=== PATIENT | male | born 1995 | race Caucasian/White ===

== ENCOUNTER 2022-04-03 11:35 | Emergency (ER) | payer SELFPAY ==
[2022-04-03 11:37] VITALS: BP 144/80; PULSE 86; RESP 16; TEMP 36.2; O2SAT 97; BMI 32.6
--- NOTE | 2022-04-03 11:38 | NURSING ---
NO OLD EKGS
--- NOTE | 2022-04-03 11:41 | EKG12_ITS ---
Test Reason : cp Blood Pressure : / mmHG Vent. Rate : 069 BPM Atrial Rate : 069 BPM P-R Int : 154 ms QRS Dur : 090 ms QT Int : 400 ms P-R-T Axes : 050 -01 003 degrees QTc Int : 428 ms Normal sinus rhythm Low voltage QRS (LIMB LEADS) Confirmed by BENITEZ STOKES, GRACE ([id number]), senior technical editor ADAM SAAB ([id number]) on 04/04/2022 10:27:34 AM Referred By: Shin Confirmed By:GRACE MARQUIS MD
--- NOTE | 2022-04-03 11:42 | EDS_ITS ---
HPI History of Present Illness Chief Complaint: Chest Pain Informant: patient Narrative Narrative: 27-year-old male presenting with chest pain. Patient states he was at work and started having midsternal chest pain. He has mild associated shortness of breath. He felt like he was having a panic attack which he has had in the past. He has also had chest pain with previous panic attacks. No recent trauma. Denies PE/DVT risk factors. Family history of heart disease. Prior similar symptoms: Yes Recent Illness/Hospitalization: No PFSH PFSH Home Medications NK 04/03/22 [History Last Taken Unknown] Allergy/AdvReac Type Severity Reaction Status Date / Time No Known Allergies Allergy Verified 04/03/22 11:37 Social History Smoking Status: Current every day smoker tobacco type: cigarettes, e-cigarettes and smokeless tobacco EXAM Physical Exam Const Vital Signs: 04/03/22 11:37 04/03/22 11:41 04/03/22 12:21 Temperature 97.1 F L Temperature Source Oral Pulse Rate 86 67 Respiratory Rate 16 20 H Respiratory Effort Normal Non-Labored Blood Pressure 144/80 H 115/70 Blood Pressure Mean 101 85 Pulse Ox 97 96 Oxygen Delivery Method Room Air Room Air 04/03/22 13:25 04/03/22 14:00 Temperature Temperature Source Pulse Rate 67 58 L Respiratory Rate 18 21 H Respiratory Effort Blood Pressure 115/67 Blood Pressure Mean 83 Pulse Ox 98 97 Oxygen Delivery Method Room Air Room Air Positive well nourished and well developed General Appearance ED: well developed HEENT Reports normocephalic and head/scalp atraumatic Eyes PERRL and EOMs intact bilaterally Neck supple General: Negative for tenderness Chest Wall inspection of chest normal Resp normal respiratory effort and clear to auscultation bilaterally Cardio regular rate and regular rhythm GI non-tender and non-distended Palpation: soft; Negative for guarding or rebound tenderness present no CVA tenderness Extremity normal to inspection Neuro oriented x3 Sensorium / Orientation: alert Psych mental status grossly normal MDM MDM MDM Narrative Medical decision making narrative: Patient was given aspirin on arrival. He was given IV fluids. CBC, chemistries are unremarkable. Troponin is negative. D-dimer normal. 2 hour delta troponin negative, time recorded in error, but was drawn 2 hours after initial troponin. EKG is sinus rhythm rate of 69 with no acute ischemic changes. Chest x-ray read by myself and radiology shows no acute process. He was given Toradol IV. He is resting comfortably on reevaluation. He is given Dr. Ray coal or ore controller for no doctor for follow-up. Advised to return to the ED for worsening complaints. Lab Data Attestation: I reviewed the patient's lab results. Labs: Laboratory Results - last 24 hr 04/03/22 04/03/22 04/03/22 12:10 12:10 12:10 WBC 5.6 RBC 4.07 L Hgb 13.8 Hct 38.3 L MCV 94.1 H MCH 33.9 H MCHC 36.0 RDW Std Deviation 43.0 RDW Coeff of Yves 12.5 Plt Count 215 MPV 9.6 Immature Gran % (Auto) 0.200 Neut % (Auto) 71.0 H Lymph % (Auto) 17.9 L [place] % (Auto) 8.4 Eos % (Auto) 2.1 Baso % (Auto) 0.4 Absolute Neuts (auto) 4.0 Absolute Lymphs (auto) 1.00 Nucleated RBC % 0 D-Dimer Quant (PE/DVT) < 0.27 L Sodium 141 Potassium 3.4 L Chloride 108 H Carbon Dioxide 27.0 Anion Gap 6 BUN 8 Creatinine 1.03 Estim Creat Clear Calc 110.25 Est GFR (MDRD) Af Amer 110 Est GFR (MDRD) Non-Af 91 BUN/Creatinine Ratio 7.8 L Glucose 114 H Calcium 8.7 Troponin I High Sens 13 04/03/22 12:42 WBC RBC Hgb Hct MCV MCH MCHC RDW Std Deviation RDW Coeff of Yves Plt Count MPV Immature Gran % (Auto) Neut % (Auto) Lymph % (Auto) [place] % (Auto) Eos % (Auto) Baso % (Auto) Absolute Neuts (auto) Absolute Lymphs (auto) Nucleated RBC % D-Dimer Quant (PE/DVT) Sodium Potassium Chloride Carbon Dioxide Anion Gap BUN Creatinine Estim Creat Clear Calc Est GFR (MDRD) Af Amer Est GFR (MDRD) Non-Af BUN/Creatinine Ratio Glucose Calcium Troponin I High Sens < 3 L Radiography Chest X-Ray - ED: 1 View, Read by ED Physician and Read by Radiologist Diagnostic Testing: Clinical Impression(s) from Imaging Studies Chest X-Ray 04/03/22 12:15 IMPRESSION: Normal x-ray examination of the chest. Electronically Signed: Abdi Cancino MD at 13:14 EDT , EKG Initial EKG: Attestation: I personally reviewed and interpreted this EKG as follows: Interpretation: Sinus Rhythm and No Acute Injury Pattern Discharge Plan Triage Chief Complaint: Chest Pain ED Provider: Pauline Melissa Dx/Rx/DC Orders Clinical Impression: Atypical chest pain Instructions: ED Chest Pain, Uncertain Cause Prescriptions: No Action NK Primary Care Provider: Care Physician,No Primary Referrals: Care Physician,No Primary [Primary Care Provider] - Bang Ray MD [NON-STAFF] - Disposition Disposition: Home, Self Care
--- NOTE | 2022-04-03 12:15 | RAD_ITS ---
STUDY: X-RAY CHEST REASON FOR EXAM: Male, 27 years old. chest pain TECHNIQUE: Single AP portable view of the chest. COMPARISON: None. FINDINGS: The lungs are clear and expanded. There is no demonstrated pleural abnormality. Normal size heart. Normal mediastinum and cathryn. Normal visualized pulmonary arteries. Normal visualized aortic arch and descending thoracic aorta. Normal visualized thoracic spine. Normal visualized ribs, clavicles, and shoulders. There is no demonstrated abnormality of the visualized soft tissue structures of the upper abdomen. RAD/Chest 1 View (Portable) IMPRESSION: Normal x-ray examination of the chest. Electronically Signed: Abdi Cancino MD at 13:14 EDT ,
[2022-04-03] MEDS: 0.9% Normal Saline 1,000 ML 1000 ML IV (12:17)
[2022-04-03] MEDS: Aspirin 81 MG TAB.CHEW 324 MG PO (12:17)
[2022-04-03 12:18] LABS: Basophil# 0.02 X10^3/uL; Basophil% 0.4 % (0-1); Eosinophil# 0.12 X10^3/uL; Eosinophils% 2.1 % (0-5); Hematocrit 38.3 % (40-54); Hemoglobin 13.8 g/dL (13.0-16.5); Lymphocyte % 17.9 % (19-41); Mean Corpuscular Hgb 33.9 pg (27.0-32.0); Mean Corpuscular Volume 94.1 fL (80-94); Mean Platelet Vol. 9.6 fl (6.2-12.0); Monocyte# 0.47 X10^3/uL; Monocyte% 8.4 % (0-10); NRBC Flagged by Analyzer 0 % (0-5); Neutrophil # 3.98 X10^3/uL (2.7-7.7); Platelet Count 215 K/mm3 (150-450); RBC Distribution Width CV 12.5 % (11.6-14.6); Red Blood Count 4.07 M/mm3 (4.6-6.2); White Blood Count 5.6 K/mm3 (4.4-11.0)
[2022-04-03 12:21] VITALS: BP 115/70; PULSE 67; RESP 20; O2SAT 96
[2022-04-03 12:35] LABS: D-Dimer Quantitative (DVT/PE) < 0.27 FEU/ug/m (0.27-0.49)
[2022-04-03 12:43] LABS: Anion Gap 6 (5-15); BUN 8 mg/dL (7-18); BUN/Creat Ratio 7.8 RATIO (10-20); Calcium,Total 8.7 mg/dL (8.5-10.1); Chloride 108 mmol/L (98-107); Creatinine, Serum 1.03 mg/dL (0.70-1.30); EST Glomerular Filtration Rate 91 mL/min (>60); Est Glom Filt Rate - Afr Amer 110 mL/min (>60); Estimated Creatinine Clearance 110.25 ml/min; Glucose 114 mg/dL (74-106); Potassium 3.4 mmol/L (3.5-5.1); Sodium Level 141 mmol/L (136-145); Troponin-I HS (w/2H Reflex) 13 pg/mL (3.0-78.0)
--- NOTE | 2022-04-03 12:48 | CM.ED ---
Social Work Note Reason for Referral: No PCP SW reviewed chart, no PCP listed for pt. SW in to speak with pt. Pt confirms he has no PCP. SW provided pt with PCP/Healthcare Provider Directory list. Krista Berkowitz [employer], [employer]
[2022-04-03 13:25] VITALS: BP 115/67; PULSE 67; RESP 18; O2SAT 98
[2022-04-03] MEDS: Ketorolac 30 MG/ML Syringe IV (13:38)
[2022-04-03 14:00] VITALS: PULSE 58; RESP 21; O2SAT 97
[2022-04-03 14:14] LABS: Reflex Troponin-HS? (from REC) Y
[2022-04-03 14:44] LABS: Troponin-I HS < 3 pg/mL (3.0-78.0)
[2022-04-03 15:10] VITALS: BP 124/71; PULSE 64; RESP 15; O2SAT 99
== END 2022-04-03 15:10 | disposition home or self-care (01) ==
PROVIDERS: Emergency Provider Emergency Medicine; Visit Provider Emergency Medicine
DX: R07.89 Other chest pain (principal); F17.210 Nicotine dependence, cigarettes, uncomplicated; R06.02 Shortness of breath; R07.2 Precordial pain
CPT/HCPCS: 71045; 80048; 84484; 85025; 85379; 87811; 93005; 99285; J7030; A4216